=== PATIENT | male | born 1970 | race Hispanic/Latino ===

== ENCOUNTER → 2025-03-22 | Day surgery (SDC) | payer BC, OTHER ==
[~2025-03-22] MED LIST: ACETAMINOPHEN 1000 MG/100 ML 100 ML IV ONE; ACETAMINOPHEN 1000 MG/100 ML IV PRN; ASPIRIN 325 MG TAB PO SCH; ASPIRIN81 MG PO; CELEBREX200 MG PO; CELECOXIB 100 MG CAP PO SCH; DEXAMETHASONE SOD PHOS INJ 4 MG/ML SDV ONE; DIPHENHYDRAMINE HCL INJ 50 MG/ML VIAL IV PRN; DOCUSATE SODIUM 100 MG CAP PO PRN; FENTANYL CITRATE/PF 100MCG/2 ML INJ ONE; HYDROCODONE/APAP 5MG-325MG TAB PO PRN; HYDROCODONE/APAP 7.5MG-325MG 1 EA TAB PO PRN; HYDROMORPHONE 2MG/ML ONE; LIDOCAINE HCL 2% LOCAL INJ 5 ML SDV VIAL INJ ONE; LISINOPRIL10 MG PO; MOUNJARO5 MG/0.5 M SC; NEURONTIN300 MG PO; ONDANSETRON HCL INJ 2MG/ML 2ML 2 MG/ML VIAL IV PRN; ONDANSETRON HCL INJ 2MG/ML 2ML 2 MG/ML VIAL ONE; PROPOFOL IV EMULSION 10 MG/ML 20 ML VIAL ONE; PROTONIX20 MG PO; ROCURONIUM BROMIDE 1 ML IV ONE; ROPIVACAINE/EPI/CLONIDINE/KET 50 ML SYRINGE INJ ONE; SODIUM CHLORIDE 0.9% 1000ML 1,000 ML IV SCH; SUGAMMADEX SODIUM 200 MG/2 ML VIAL IV ONE; VITAMIN B PO; VITAMIN D310 MCG PO
[2025-03-22] MEDS: CELECOXIB 200 MG CAP ONE (07:17)
[2025-03-22] MEDS: CEFAZOLIN SODIUM 2 GM ONE (07:17)
[2025-03-22] MEDS: GABAPENTIN 300 MG CAP ONE (07:17)
[2025-03-22] MEDS: LACTATED RINGER'S 1,000 ML ONE (07:17)
[2025-03-22] MEDS: DEXAMETHASONE SOD PHOS 10 MG/1 ML VIAL ONE (07:17)
[2025-03-22 12:10] VITALS: BP 159/65; PULSE 78; RESP 16; O2SAT 97
== END | disposition home health service (06) ==
LOC: OR 06:23
PROVIDERS: ATTEND Specialist
DX: M16.12 Unilateral primary osteoarthritis, left hip (principal); I10 Essential (primary) hypertension; E66.812 Obesity, class 2; Z87.891 Personal history of nicotine dependence; Z79.1 Long term (current) use of non-steroidal anti-inflammatories (NSAID); Z68.36 Body mass index [BMI] 36.0-36.9, adult; Z79.85 Long-term (current) use of injectable non-insulin antidiabetic drugs; Z79.899 Other long term (current) drug therapy
CPT/HCPCS: 72170; 86850; 86900; C1713; J1100; J1171; J2003; J2405

== ENCOUNTER 2025-04-09 10:46 | Outpatient (RCR) | payer OTHER ==
[~2025-04-09 10:46] MED LIST changes: -ACETAMINOPHEN 1000 MG/100 ML 100 ML IV ONE; -ACETAMINOPHEN 1000 MG/100 ML IV PRN; -ASPIRIN 325 MG TAB PO SCH; -CELECOXIB 100 MG CAP PO SCH; -DEXAMETHASONE SOD PHOS INJ 4 MG/ML SDV ONE; -DIPHENHYDRAMINE HCL INJ 50 MG/ML VIAL IV PRN; -DOCUSATE SODIUM 100 MG CAP PO PRN; -FENTANYL CITRATE/PF 100MCG/2 ML INJ ONE; -HYDROCODONE/APAP 5MG-325MG TAB PO PRN; -HYDROCODONE/APAP 7.5MG-325MG 1 EA TAB PO PRN; -HYDROMORPHONE 2MG/ML ONE; -LIDOCAINE HCL 2% LOCAL INJ 5 ML SDV VIAL INJ ONE; -ONDANSETRON HCL INJ 2MG/ML 2ML 2 MG/ML VIAL IV PRN; -ONDANSETRON HCL INJ 2MG/ML 2ML 2 MG/ML VIAL ONE; -PROPOFOL IV EMULSION 10 MG/ML 20 ML VIAL ONE; -ROCURONIUM BROMIDE 1 ML IV ONE; -ROPIVACAINE/EPI/CLONIDINE/KET 50 ML SYRINGE INJ ONE; -SODIUM CHLORIDE 0.9% 1000ML 1,000 ML IV SCH; -SUGAMMADEX SODIUM 200 MG/2 ML VIAL IV ONE
== END 2025-04-11 ==
LOC: PT 10:46
PROVIDERS: ATTEND Physician Assistant
DX: Z47.1 Aftercare following joint replacement surgery (principal); Z96.642 Presence of left artificial hip joint

== ENCOUNTER 2025-05-07 13:00 | Outpatient (RCR) | payer OTHER | END 2025-05-11 | LOC: PT 13:00 | PROVIDERS: ATTEND Physician Assistant | DX: Z47.1 Aftercare following joint replacement surgery (principal); Z96.642 Presence of left artificial hip joint ==

== ENCOUNTER → 2025-06-08 | Day surgery (SDC) | payer BC, OTHER ==
[2025-06-02 16:27] LABS: BASOPHILS % 0.5 % (0.0-1.0); EOSINOPHILS % 6.6 % (0.0-6.0); LYMPHOCYTES % 28.0 % (18.0-39.1); MONOCYTES % 10.3 % (4.4-11.3); NEUTROPHILS % 54.4 % (38.7-80.0); RED CELL DISTRIBUTION WIDTH 12.5 % (11.7-14.4)
[~2025-06-08] MED LIST changes: +ACETAMINOPHEN 1000 MG/100 ML 100 ML IV ONE; +ACETAMINOPHEN 1000 MG/100 ML IV PRN; +ASPIRIN 325 MG TAB PO SCH; +CELECOXIB 100 MG CAP PO SCH; +DEXAMETHASONE SOD PHOS INJ 4 MG/ML SDV ONE; +DIPHENHYDRAMINE HCL INJ 50 MG/ML VIAL IV PRN; +DOCUSATE SODIUM 100 MG CAP PO PRN; +FENTANYL CITRATE/PF 100MCG/2 ML INJ ONE; +HYDROCODONE/APAP 5MG-325MG TAB PO PRN; +HYDROCODONE/APAP 7.5MG-325MG 1 EA TAB PO PRN; +HYDROMORPHONE 2MG/ML ONE; +LIDOCAINE HCL 2% LOCAL INJ 5 ML SDV VIAL INJ ONE; +MIDAZOLAM HCL 2 MG/2 ML VIAL ONE; +ONDANSETRON HCL INJ 2MG/ML 2ML 2 MG/ML VIAL IV PRN; +ONDANSETRON HCL INJ 2MG/ML 2ML 2 MG/ML VIAL ONE; +PROPOFOL IV EMULSION 10 MG/ML 20 ML VIAL ONE; +ROCURONIUM BROMIDE 1 ML IV ONE; +ROPIVACAINE 246.25 MG, EPINEPHRINE HCL 1:1000 1ML 0.5 MG, CLONIDINE HCL 0.08 MG, KETORO... INJ ONE; +SODIUM CHLORIDE 0.9% 1000ML 1,000 ML IV SCH; +SUGAMMADEX SODIUM 200 MG/2 ML VIAL IV ONE
[2025-06-08] MEDS: CELECOXIB 200 MG CAP ONE (08:35)
[2025-06-08] MEDS: GABAPENTIN 300 MG CAP ONE (08:36)
[2025-06-08] MEDS: LACTATED RINGER'S 1,000 ML ONE (08:36)
[2025-06-08] MEDS: DEXAMETHASONE SOD PHOS 10 MG/1 ML VIAL ONE (08:36)
[2025-06-08] MEDS: CEFAZOLIN SODIUM 2 GM ONE (08:36)
[2025-06-08] MEDS: HYDROMORPHONE 1MG/1ML INJ ONE ×2 (11:02→11:19)
[2025-06-08 11:35] VITALS: TEMP 97.5
[2025-06-08] MEDS: KETOROLAC TROMETHAMINE 30 MG/ML VIAL ONE (11:50)
[2025-06-08] MEDS: HYDROCODONE/APAP 7.5MG-325MG 1 EA TAB ONE (12:50)
[2025-06-08 13:00] VITALS: BP 150/98; PULSE 70; RESP 17; O2SAT 99
== END | disposition home health service (06) ==
LOC: OR 08:08
PROVIDERS: ATTEND Specialist
DX: M16.11 Unilateral primary osteoarthritis, right hip (principal); I10 Essential (primary) hypertension; K21.9 Gastro-esophageal reflux disease without esophagitis; Z87.891 Personal history of nicotine dependence; Z96.642 Presence of left artificial hip joint; Z68.36 Body mass index [BMI] 36.0-36.9, adult; Z79.82 Long term (current) use of aspirin; Z79.1 Long term (current) use of non-steroidal anti-inflammatories (NSAID); Z79.899 Other long term (current) drug therapy; Z79.85 Long-term (current) use of injectable non-insulin antidiabetic drugs; Z01.810 Encounter for preprocedural cardiovascular examination; Z01.812 Encounter for preprocedural laboratory examination
CPT/HCPCS: 36415; 72170; 85025; 86850; 86900; 93005; C1713; J0169; J1100; J1171; J1885; J2003; J2250; J2405; J2795